=== PATIENT | female | born 1980 | race Caucasian/White ===

== ENCOUNTER 2016-07-08 10:14 | Emergency (ER) | payer OTHER ==
[~2016-07-08] VITALS: Ht 172.7 cm; Wt 87.4 kg
[2016-07-08] MEDS ORDERED: LISINOPRIL40 MG PO (10:32)
[2016-07-08] MEDS ORDERED: DILTIAZEM 24HR240 MG PO (10:32)
[2016-07-08] MEDS ORDERED: TRIAMTERENE-HC1 EACH PO (10:33)
[2016-07-08] MEDS ORDERED: DEPAKOTE500 MG PO (10:33)
[2016-07-08] MEDS ORDERED: GEODON80 MG PO ×2 (10:33→11:21)
[2016-07-08] MEDS ORDERED: PROVENTIL HFA6.7 GM IH (10:35)
[2016-07-08] MEDS ORDERED: PROAIR HFA8.5 GM IH (11:21)
[2016-07-08] MEDS ORDERED: COGENTIN1 MG PO (11:21)
[2016-07-08] MEDS ORDERED: ZITHROMAX500 MG PO (11:21)
[2016-07-08] MEDS ORDERED: MEDROL DOSEPAK4 MG PO (11:21)
[2016-07-08] MEDS ORDERED: ZYRTEC10 M3 PO (11:21)
[2016-07-08 11:38] VITALS: BP 143/71
== END 2016-07-08 11:48 | disposition home or self-care (01) ==
LOC: EME 10:14
DX: J20.9 Acute bronchitis, unspecified (principal); F31.9 Bipolar disorder, unspecified; I10 Essential (primary) hypertension; F17.200 Nicotine dependence, unspecified, uncomplicated
CPT/HCPCS: 71020; 94640; 99281; 99284; J7512

== ENCOUNTER 2016-08-05 11:54 | Emergency (ER) | payer OTHER ==
[~2016-08-05] VITALS: Ht 172.7 cm; Wt 95.0 kg
[~2016-08-05 11:54] MED LIST: COGENTIN1 MG PO; DEPAKOTE500 MG PO; DILTIAZEM 24HR240 MG PO; GEODON80 MG PO; LISINOPRIL40 MG PO; MEDROL DOSEPAK4 MG PO; PROAIR HFA8.5 GM IH; PROVENTIL HFA6.7 GM IH; TRIAMTERENE-HC1 EACH PO; ZITHROMAX500 MG PO; ZYRTEC10 M3 PO
[2016-08-05] MEDS ORDERED: GEODON80 MG PO (14:04)
[2016-08-05] MEDS ORDERED: COGENTIN0.5 MG PO (14:04)
[2016-08-05] MEDS ORDERED: DAILY VALUE1 EACH PO (14:28)
[2016-08-05] MEDS ORDERED: ASCORBIC ACID100 MG PO (14:29)
[2016-08-05 14:30] VITALS: BP 121/67
== END 2016-08-05 14:30 | disposition home or self-care (01) ==
LOC: EME 11:54
DX: F31.9 Bipolar disorder, unspecified (principal); F41.9 Anxiety disorder, unspecified; Z76.0 Encounter for issue of repeat prescription; I10 Essential (primary) hypertension; F17.200 Nicotine dependence, unspecified, uncomplicated
CPT/HCPCS: 99281; 99284

== ENCOUNTER 2016-09-05 10:16 | Emergency (ER) | payer OTHER ==
[~2016-09-05] VITALS: Ht 172.7 cm; Wt 85.1 kg
[~2016-09-05 10:16] MED LIST changes: +ASCORBIC ACID100 MG PO; +COGENTIN0.5 MG PO; +DAILY VALUE1 EACH PO
[2016-09-05] MEDS ORDERED: COGENTIN0.5 MG PO (11:31)
[2016-09-05] MEDS ORDERED: GEODON80 MG PO (11:31)
[2016-09-05 11:49] VITALS: BP 119/74
== END 2016-09-05 11:50 | disposition home or self-care (01) ==
LOC: EME 10:16
DX: F31.9 Bipolar disorder, unspecified (principal); Z76.0 Encounter for issue of repeat prescription; F17.200 Nicotine dependence, unspecified, uncomplicated; Z91.013 Allergy to seafood
CPT/HCPCS: 99281; 99283